=== PATIENT | female | born 1985 | race Caucasian/White ===

== ENCOUNTER 2017-09-01 10:29 | Day surgery (SDC) | payer OTHER ==
[~2017-09-01 10:29] MED LIST: CEFAZOLIN 2 GM/D5W RTU 2 GM/50 ML RTUPB IV PRN; CEFAZOLIN SODIUM 2 GM in DEXTROSE 5%-WATER 100 ML IV SCH
[2017-09-01] MEDS ORDERED: NEOSTIGMINE METHYLSULFATE 10 MG/10 ML VIAL ONE (10:59)
[2017-09-01] MEDS ORDERED: ONDANSETRON HCL INJ/PF 4 MG/2 ML SDV ONE ×2 (10:59→13:57)
[2017-09-01] MEDS ORDERED: KETOROLAC TROMETHAMINE 60 MG/2 ML SDV ONE (10:59)
[2017-09-01] MEDS ORDERED: SUCCINYLCHOLINE CHLORIDE INJ 200 MG/10 ML VIAL ONE (10:59)
[2017-09-01] MEDS ORDERED: GLYCOPYRROLATE INJ 0.4 MG/2 ML VIAL ONE (10:59)
[2017-09-01] MEDS ORDERED: DEXAMETHASONE SOD PHOSPHATE INJ 4 MG/1 ML VIAL ONE (10:59)
[2017-09-01] MEDS ORDERED: ROCURONIUM BROMIDE INJ 50 MG/5 ML VIAL IV ONE (10:59)
[2017-09-01] MEDS ORDERED: CEFAZOLIN SODIUM 2 GM in DEXTROSE 5%-WATER 100 ML IV PRN (11:06)
[2017-09-01] MEDS ORDERED: ALBUTEROL SULFATE 0.083% NEB 2.5 MG/3 ML AMPUL NEB ONE (11:25)
[2017-09-01 11:27] LABS: HEMOGLOBIN 14.2 g/dL (12.0-15.5); MEAN CORPUSCULAR HEMOGLOBIN 27.5 pg (27.0-33.4); MEAN CORPUSCULAR HGB CONC 33.1 g/dL (32.0-36.0); MEAN CORPUSCULAR VOLUME 83 fl (80-97); PLATELET COUNT 316 10^3/uL (150-450); RED BLOOD COUNT 5.17 10^6/uL (3.72-5.28); WHITE BLOOD COUNT 10.4 10^3/uL (4.0-10.5)
[2017-09-01 11:27] LABS: APPEARANCE,URINE CLEAR; BILIRUBIN,URINE NEGATIVE (NEGATIVE); COLOR,URINE YELLOW; GLUCOSE, URINE NEGATIVE (NEGATIVE); KETONES,URINE NEGATIVE (NEGATIVE); LEUKOCYTE ESTERASE,URINE NEGATIVE (NEGATIVE); NITRITE,URINE NEGATIVE (NEGATIVE); PROTEIN,URINE 30 mg/dL (NEGATIVE); URINE SPECIFIC GRAVITY 1.016; UROBILINOGEN,URINE NEGATIVE mg/dL (<2.0)
[2017-09-01] MEDS ORDERED: LIDOCAINE 4% INJ/PF (40 MG/ML) 5 ML AMPUL ONE (11:36)
[2017-09-01] MEDS ORDERED: LIDOCAINE 0.5% INJ-PF (5 MG/ML) 50 ML SDV ONE (11:39)
[2017-09-01] MEDS ORDERED: MIDAZOLAM 2 MG/2 ML INJ ONE (11:48)
[2017-09-01] MEDS ORDERED: FENTANYL CITRATE INJ/PF 100 MCG/2 ML AMPUL ONE (11:48)
[2017-09-01] MEDS ORDERED: PROPOFOL INJ 200 MG/20 ML VIAL IV ONE (11:49)
[2017-09-01 11:51] LABS: ANION GAP 13 (5-19); BLOOD UREA NITROGEN 12 mg/dL (7-20); CALCIUM 9.8 mg/dL (8.4-10.2); CARBON DIOXIDE 26 mmol/L (22-30); CHLORIDE 106 mmol/L (98-107); GLUCOSE 104 mg/dL (75-110); POTASSIUM 4.5 mmol/L (3.6-5.0); SODIUM 144.8 mmol/L (137-145)
[2017-09-01] MEDS ORDERED: BUPIVACAINE HCL 0.5 % INJ/PF 30 ML SDV ONE (12:08)
[2017-09-01] MEDS ORDERED: LIDOCAINE 1% INJ-PF (10 MG/ML) 30 ML SDV ONE (12:08)
--- NOTE | 2017-09-01 12:56 | EKG REPORT ---
SEVERITY:- BORDERLINE ECG - SINUS RHYTHM BORDERLINE PROLONGED QT INTERVAL : Confirmed by: Yordan Barraza MD 01-Sep-2017 12:56:07
[2017-09-01] MEDS ORDERED: RINGERS SOLUTION,LACTATED 1,000 ML IV ONE (13:00)
[2017-09-01] MEDS ORDERED: PROMETHAZINE HCL INJ 25 MG/1 ML VIAL IV PRN ×2 (13:32)
[2017-09-01] MEDS ORDERED: MEPERIDINE HCL/PF INJ 25 MG/1 ML DISP.SYRIN IV PRN (13:32)
[2017-09-01] MEDS ORDERED: OXYCODONE-ACETAMINOPHEN 5-325 MG TABLET PO PRN ×3 (13:32→13:57)
[2017-09-01] MEDS ORDERED: FENTANYL CITRATE INJ/PF 100 MCG/2 ML AMPUL IV PRN ×3 (13:32)
[2017-09-01] MEDS ORDERED: DIPHENHYDRAMINE HCL 50 MG/ML VIAL IV PRN (13:32)
[2017-09-01] MEDS ORDERED: MORPHINE SULFATE 10 MG/ML INJ IV PRN (13:57)
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
--- NOTE | 2017-09-01 14:07 | Discharge Summary ---
Discharge Summary (SDC) - Discharge Final Diagnosis: Left Small Finger PIP Intra-articular Proximal Phalanx Fracture Date of Surgery: 09/01/17 Discharge Date: 09/01/17 Condition: Good Treatment or Instructions: Schedule Follow Up w/ Dr. Suresh Hurd @ [facility] to be seen in 10-14 days or as scheduled [place]: [place]: [place]: Ice and elevate Do Not Remove Dressing If your fingers become numb please unwrap the Howard wrap but leave the splint in place, if the sensation does not return within 30 minutes please return to the emergency department. May begin finger range of motion attempting to make full fist. Please use ibuprofen (Motrin or Advil) 600-800 mg every 8 hours as needed for pain or fever DO NOT TAKE w/ TORADOL may use once TORADOL complete. You may also use acetaminophen (Tylenol) 1000 mg every 4-6 hours as needed for pain or fever. Please be aware that many medications contain acetaminophen, do not exceed a total of 1000 mg of acetaminophen every 6 hours. If ibuprofen and acetaminophen are not sufficient for your pain you may take the Percocet/[place]. Please be aware that the Percocet/[place] does contain Tylenol. Stool softener of choice when on pain medication. Prescriptions: Oxycodone HCl/Acetaminophen [Percocet 5-325 mg Tablet] 1 - 2 tab PO ASDIR PRN # 30 tablet PRN Reason: Discharge Diet: As Tolerated Respiratory Treatments at Home: Deep Breathing/Coughing Discharge Activity: No Lifting Over 10 Pounds, No Lifting/Push/Pulling Report the Following to Your Physician Immediately: Fever over 101 Degrees, Unusual Bleeding, Redness, Swelling, Warmth
[2017-09-01] MEDS ORDERED: KETOROLAC TROMETHAMINE INJ/PF 30 MG/1 ML SDV ONE (14:30)
--- NOTE | 2017-09-01 15:09 | RADIOLOGY REPORT (SQ) ---
EXAM DESCRIPTION: NO CHG FLUORO; FINGER LEFT COMPLETED DATE/TIME: 09/01/2017 2:26 pm REASON FOR STUDY: LEFT FINGER PINNING S62.617A DISP FX OF PROXIMAL PHALANX OF LEFT LITTLE FINGER, COMPARISON: None. FLUOROSCOPY TIME: 1 minutes 13 seconds 3 images saved to PACS. TECHNIQUE: Intra-operative images acquired during surgical procedure to evaluate progress. NUMBER OF IMAGES: 3 LIMITATIONS: None. FINDINGS: Orthopedic pins through proximal phalangeal fracture 5th digit IMPRESSION: IMAGE(S) OBTAINED DURING PROCEDURE. COMMENT: Quality ID [id number]: Final reports for procedures using fluoroscopy that document radiation exp osure indices, or exposure time and number of fluorographic images (if radiation exposure indices are not available) Please consult full operative report of the attending physician for description of the procedure. TECHNICAL DOCUMENTATION: JOB ID: [id number] [employer]- All Rights Reserved Reading location - IP/workstation name: [email or web address]
--- NOTE | 2017-09-01 15:10 | RADIOLOGY REPORT (SQ) ---
EXAM DESCRIPTION: NO CHG FLUORO; FINGER LEFT COMPLETED DATE/TIME: 09/01/2017 2:26 pm REASON FOR STUDY: LEFT FINGER PINNING S62.617A DISP FX OF PROXIMAL PHALANX OF LEFT LITTLE FINGER, COMPARISON: None. FLUOROSCOPY TIME: 1 minutes 13 seconds 3 images saved to PACS. TECHNIQUE: Intra-operative images acquired during surgical procedure to evaluate progress. NUMBER OF IMAGES: 3 LIMITATIONS: None. FINDINGS: Orthopedic pins through proximal phalangeal fracture 5th digit IMPRESSION: IMAGE(S) OBTAINED DURING PROCEDURE. COMMENT: Quality ID [id number]: Final reports for procedures using fluoroscopy that document radiation exp osure indices, or exposure time and number of fluorographic images (if radiation exposure indices are not available) Please consult full operative report of the attending physician for description of the procedure. TECHNICAL DOCUMENTATION: JOB ID: [id number] [employer]- All Rights Reserved Reading location - IP/workstation name: [email or web address]
[2017-09-01 15:54] VITALS: BP 147/100
== END 2017-09-01 15:45 | disposition home or self-care (01) ==
LOC: OROUT 10:29
PROVIDERS: ATTEND Orthopaedic Surgery
DX: S62.617A Displaced fracture of proximal phalanx of left little finger, initial encounter for closed fracture (principal); V89.2XXA Person injured in unspecified motor-vehicle accident, traffic, initial encounter; F17.210 Nicotine dependence, cigarettes, uncomplicated; E66.9 Obesity, unspecified; Z68.41 Body mass index [BMI] 40.0-44.9, adult
CPT/HCPCS: 36415; 85027; 81025; 80048; 81001; 73140; 93005; 93010; 94640; 26725; C1769; J2250; J3490 ×3; J0690; J1100; J1885 ×2; J3010; J0330; J2405; J2704; 01820

== ENCOUNTER 2017-09-06 00:16 | Emergency (ER) | payer OTHER ==
[2017-09-06 00:57] VITALS: BP 188/114
[2017-09-06 01:27] LABS: ABSOLUTE BASOPHILS # (AUTO) 0.1 10^3/uL (0.0-0.2); ABSOLUTE EOSINOPHILS # (AUTO) 0.3 10^3/uL (0.0-0.6); ABSOLUTE LYMPHOCYTES (AUTO) 3.3 10^3/uL (0.5-4.7); ABSOLUTE MONOCYTES (AUTO) 0.8 10^3/uL (0.1-1.4); ABSOLUTE NEUT (AUTO) 5.6 10^3/uL (1.7-8.2); ALANINE AMINOTRANSFERASE 35 U/L (9-52); ALBUMIN 4.3 g/dL (3.5-5.0); ALKALINE PHOSPHATASE 78 U/L (38-126); ANION GAP 14 (5-19); ASPARTATE AMINO TRANSFERASE 20 U/L (14-36); BASOPHILS % (AUTO) 0.5 % (0-2); BILIRUBIN,TOTAL < 0.1 mg/dL (0.2-1.3); BLOOD UREA NITROGEN 14 mg/dL (7-20); CALCIUM 9.8 mg/dL (8.4-10.2); CARBON DIOXIDE 28 mmol/L (22-30); CHLORIDE 102 mmol/L (98-107); EOSINOPHILS % (AUTO) 2.6 % (0-6); GLUCOSE 84 mg/dL (75-110); HEMATOCRIT 39.1 % (36.0-47.0); HEMOGLOBIN 13.1 g/dL (12.0-15.5); LYMPHOCYTES % (AUTO) 33.3 % (13-45); MEAN CORPUSCULAR HEMOGLOBIN 27.8 pg (27.0-33.4); MEAN CORPUSCULAR HGB CONC 33.5 g/dL (32.0-36.0); MEAN CORPUSCULAR VOLUME 83 fl (80-97); MONOCYTES % (AUTO) 7.6 % (3-13); PLATELET COUNT 303 10^3/uL (150-450); POTASSIUM 3.9 mmol/L (3.6-5.0); RED BLOOD COUNT 4.71 10^6/uL (3.72-5.28); RED CELL DISTRIBUTION WIDTH 15.8 % (11.5-14.0); SODIUM 143.8 mmol/L (137-145); TOTAL CELLS COUNTED % (AUTO) 100 %; TOTAL PROTEIN 7.2 g/dL (6.3-8.2); WHITE BLOOD COUNT 9.9 10^3/uL (4.0-10.5)
[2017-09-06 01:30] LABS: INTERNATIONAL RATION (INR) 0.94; PROTHROMBIN TIME 13.1 SEC (11.4-15.4)
[2017-09-06] MEDS ORDERED: PROCHLORPERAZINE EDISYLATE INJ 10 MG/2 ML VIAL IV ONE (01:35)
[2017-09-06] MEDS ORDERED: ONDANSETRON HCL INJ/PF 4 MG/2 ML SDV IV ONE (01:35)
[2017-09-06] MEDS ORDERED: DIPHENHYDRAMINE HCL 50 MG/ML VIAL IV ONE (01:35)
--- NOTE | 2017-09-06 01:43 | RADIOLOGY REPORT (SQ) ---
EXAM DESCRIPTION: 1. CT of the head without contrast. 2. CTA of the head with contrast CLINICAL HISTORY: worst WRAY ever COMPARISON: None available TECHNIQUE: Axial CT of the head obtained from the skull apex to the skull base without contrast. CTA of the head obtained following the uncomplicated intravenous administration of 70 mL Isovue-370. 3-D/MIP reformatted images available. FINDINGS: No acute intracranial hemorrhage identified. No mass, mass effect, shift of the midline, abnormal extra-axial fluid collection or CT evidence of acute ischemic change identified. The ventricular system is unremarkable. No acute abnormalities of the supratentorial white matter, basal ganglia, cerebellum, or brainstem. The visualized paranasal sinuses and the mastoids are clear. No skull fracture identified. Visualized orbits and globes are unremarkable. CTA HEAD: Anterior circulation: The intracranial internal carotid arteries have normal course and caliber and bifurcates into patent A1 and M1 segments of the anterior middle cerebral arteries respectively. No aneurysm or occlusion identified. Posterior circulation: The intracranial vertebral arteries are patent and combined to form a patent basilar artery. Dominant right vertebral artery. The basilar artery bifurcates into patent posterior cerebral arteries. No definite aneurysm or occlusion identified. DLP: 1217.73 mGy-cm IMPRESSION: 1. No acute intracranial abnormality identified. 2. No abnormalities of the intracranial vasculature identified. This exam was performed according to our departmental dose-optimization program, which includes automated exposure control, adjustment of the mA and/or kV according to patient size and/or use of iterative reconstruction technique.
--- NOTE | 2017-09-06 01:52 | ER Document Report ---
ED Headache - General Mode of Arrival: Ambulatory Information source: Patient TRAVEL OUTSIDE OF THE [place] IN LAST 30 DAYS: No <ECHO SMITH - Last Filed: 09/06/17 01:59> <WANDA PATEL - Last Filed: 09/06/17 03:43> - General Chief Complaint: Headache, Worst Ever Stated Complaint: HEADACHE Time Seen by Provider: 09/06/17 00:34 Notes: Patient is a 31 year-old female presenting to the emergency department complaining of headache onset 09/04/2017. Patient states that she recently had surgery on her left hand and has had the headache ever since. She further states this is the worst headache she has ever had. Patient denies any other symptoms and states she just wants to sleep. Patient is currently on Ibuprofen and Percocett. (ECHO SMITH) - Related Data Allergies/Adverse Reactions: No Known Allergies Allergy (Unverified 09/01/17 11:49) Past Medical History - General Information source: Patient - Social History Smoking Status: Unknown if Ever Smoked Family History: Reviewed & Not Pertinent Patient has suicidal ideation: No Patient has homicidal ideation: No Pulmonary Medical History: Reports: Hx Pneumonia - A CHILD Neurological Medical History: Reports: Hx Migraine Past Surgical History: Reports: Hx Tubal Ligation - Immunizations Hx Diphtheria, Pertussis, Tetanus Vaccination: Yes <ECHO SMITH - Last Filed: 09/06/17 01:59> Review of Systems - Review of Systems Constitutional: No symptoms reported EENT: No symptoms reported Cardiovascular: No symptoms reported Respiratory: No symptoms reported Gastrointestinal: No symptoms reported Genitourinary: No symptoms reported Female Genitourinary: No symptoms reported Musculoskeletal: No symptoms reported Skin: No symptoms reported Hematologic/Lymphatic: No symptoms reported Neurological/Psychological: See HPI, Headaches -: Yes All other systems reviewed and negative <ECHO SMITH - Last Filed: 09/06/17 01:59> Physical Exam <ECHO SMITH - Last Filed: 09/06/17 01:59> <WANDA PATEL - Last Filed: 09/06/17 03:43> - Vital signs Vitals: Temp Pulse Resp Pulse Ox 97.8 F 86 25 H 100 09/06/17 00:30 09/06/17 00:30 09/06/17 00:30 09/06/17 00:30 - Notes Notes: GENERAL: Alert, appears uncomfortable, hypertensive. No acute distress. HEAD: Normocephalic, atraumatic. EYES: Pupils equal, round, and reactive to light. Extraocular movements intact. ENT: Oral mucosa moist, tongue midline. NECK: Full range of motion. Supple. Trachea midline. LUNGS: Clear to auscultation bilaterally, no wheezes, rales, or rhonchi. No respiratory distress. HEART: Regular rate and rhythm. No murmurs, gallops, or rubs. EXTREMITIES: Moves all 4 extremities spontaneously. NEUROLOGICAL: Alert and oriented x3. Normal speech. PSYCH: Appears uncomfortable. SKIN: Warm, dry, normal turgor. No rashes or lesions noted. (ECHO SMITH) Course - Laboratory Result Diagrams: 09/06/17 00:40 09/06/17 00:40 <ECHO SMITH - Last Filed: 09/06/17 01:59> - Laboratory Result Diagrams: 09/06/17 00:40 09/06/17 00:40 - Diagnostic Test Radiology reviewed: Image reviewed, Reports reviewed <WANDA PATEL - Last Filed: 09/06/17 03:43> - Re-evaluation Re-evalutation: 09/06/17 02:50 CT/CTA wnl. Labs wnl. Went to see patient, in restroom. 09/06/17 03:10 Informed by nursing staff that patient has taken out her IV and taken off her leads walking out stating that nothing has been done for her. Nurse advised the patient that medication has been ordered for her. Patient states that she just wants to go home. Patient eloped from the emergency department before I could talk to her. ( WANDA PATEL) - Vital Signs Vital signs: Temp Pulse Resp BP Pulse Ox 97.8 F 79 22 H 188/114 H 100 09/06/17 00:30 09/06/17 00:32 09/06/17 01:04 09/06/17 00:32 09/06/17 01:04 - Laboratory Laboratory results interpreted by me: 09/06/17 09/06/17 00:40 00:40 RDW 15.8 H Total Bilirubin < 0.1 L Discharge <ECHO SMITH - Last Filed: 09/06/17 01:59> <WANDA PATEL - Last Filed: 09/06/17 03:43> - Discharge Clinical Impression: Headache Condition: Stable Disposition: ELOPED Scribe Attestation: 09/06/17 03:43 I personally performed the services described in the documentation, reviewed and edited the documentation which was dictated to the scribe in my presence, and it accurately records my words and actions. (WANDA PATEL) Scribe Documentation - Scribe Written by Marielibe:: Alen Garcia, 09/06/2017 02:07 acting as scribe for :: Fredy <ECHO SMITH - Last Filed: 09/06/17 01:59>
[2017-09-06] MEDS ORDERED: KETOROLAC TROMETHAMINE INJ/PF 30 MG/1 ML SDV IV ONE (03:04)
[2017-09-06] MEDS ORDERED: PROMETHAZINE HCL INJ 25 MG/1 ML VIAL IM ONE (03:09)
== END 2017-09-06 03:20 | disposition left against medical advice (07) ==
LOC: ER 00:16
DX: R51 Headache (principal); Z98.890 Other specified postprocedural states; Z98.51 Tubal ligation status
CPT/HCPCS: 99281; 36415; 84703; 85025; 85610; 80053; 70450; 70496; J1200; J1885; J0780; J2405